=== PATIENT | male | born 1975 | race Two or more races ===

== ENCOUNTER 2021-09-23 14:52 | Emergency (ER) | payer OTHER ==
[2021-09-23] MEDS ORDERED: MEDROL 4MG DOSEP4 MG PO (17:22)
[2021-09-23] MEDS ORDERED: VENTOLIN HFA18 GM INH (17:22)
== END 2021-09-23 19:30 | disposition home or self-care (01) ==
LOC: FER 14:52
DX: U07.1 COVID-19 (principal); Z23 Encounter for immunization
CPT/HCPCS: M0243; Q0244